=== PATIENT | female | born 1945 | race Caucasian/White ===

== ENCOUNTER 2023-02-09 09:24 | Observation (INO) | payer BC ==
[~2023-02-09] VITALS: Ht 162.6 cm; Wt 77.0 kg
[2023-02-09] MEDS: ASPIRIN 81MG ENTERIC TABLET PO SCH (09:00)
[2023-02-09] MEDS ORDERED: ISOVUE-370 76% 100ML VIAL As Ordered ONE (10:00)
[2023-02-09 10:01] LABS: BASO # 0.1 10^3/uL (0.0-0.2); BASO % 1.3 % (0.0-1.0); EOS # 0.2 10^3/uL (0.0-0.5); EOS % 2.7 % (0.0-3.0); HEMATOCRIT 38.6 % (36.0-47.0); HEMOGLOBIN 12.6 g/dl (12.0-15.5); LYMPH # 1.8 10^3/uL (1.5-5.0); LYMPH % 29.2 % (24.0-44.0); MEAN CORPUSCULAR HGB CONC 32.6 g/dl (32.0-36.5); MEAN CORPUSCULAR VOLUME 94.8 fl (80.0-96.0); MONO # 0.5 10^3/uL (0.0-0.8); MONO % 7.5 % (2.0-8.0); NEUTROPHILS # 3.7 10^3/uL (1.5-8.5); PLATELET COUNT, AUTOMATED 232 10^3/uL (150-450); RED BLOOD COUNT 4.07 10^6/uL (4.00-5.40); WHITE BLOOD COUNT 6.3 10^3/uL (4.0-10.0)
[2023-02-09 10:18] LABS: INR 0.93; PARTIAL THROMBOPLASTIN TIME 24.6 SECONDS (24.8-34.2); PROTHROMBIN TIME 12.2 SECONDS (12.5-14.5)
[2023-02-09 10:24] LABS: BLOOD UREA NITROGEN 20 MG/DL (9-23); CALCIUM LEVEL 8.7 MG/DL (8.3-10.6); CARBON DIOXIDE LEVEL 24 MMOL/L (20-31); CHLORIDE LEVEL 108 MMOL/L (98-107); CPK CREATINE PHOSPHOKINASE 352 U/L (34-145); CREATININE FOR GFR 0.77 MG/DL (0.55-1.30); GLOMERULAR FILTRATION RATE > 60.0 (>39); GLUCOSE, FASTING 96 MG/DL (74-106); POTASSIUM SERUM 4.2 MMOL/L (3.5-5.1); SODIUM LEVEL 140 MMOL/L (136-145)
[2023-02-09 10:25] LABS: CK-MB VALUE MASS 2.5 NG/ML (<3.6); MB/CK RELATIVE INDEX 0.71 (< OR =4)
[2023-02-09] MEDS ORDERED: NOXI1TAB PO (10:51)
[2023-02-09] MEDS ORDERED: LISI10TA22 PO (10:51)
[2023-02-09] MEDS ORDERED: CVSTAB PO (10:51)
[2023-02-09] MEDS ORDERED: SIMV20TA22 PO (10:51)
[2023-02-09] MEDS ORDERED: FIORECET (10:51)
[2023-02-09] MEDS ORDERED: FAMO20TA PO (10:51)
[2023-02-09] MEDS ORDERED: CITRTAB18 PO (10:51)
[2023-02-09] MEDS ORDERED: advil (10:54)
[2023-02-09] MEDS ORDERED: OMEP40CA4 PO (10:54)
[2023-02-09] MEDS ORDERED: FERR324T21 PO (10:54)
[2023-02-09] MEDS ORDERED: EXCED (10:54)
[2023-02-09 10:55] LABS: RSV AMPLIFICATION NEGATIVE (NEGATIVE)
[2023-02-09] MEDS ORDERED: MED REC IN PROGRESS XX SCH (11:40)
[2023-02-09] MEDS ORDERED: MED REC CURRENTLY UNOBTAINABLE XX SCH (11:50)
[2023-02-09] MEDS: CLOPIDOGREL 75 MG TAB PO SCH (15:01)
[2023-02-09 15:23] LABS: CHOLESTEROL LEVEL 145 MG/DL (<200); CHOLESTEROL RISK RATIO 2.45 (<5); HDL CHOLESTEROL 59.1 MG/DL (>40); LDL CHOLESTEROL 59.5 MG/DL (<100); NON-HDL-C 85.9 MG/DL; TRIGLYCERIDES LEVEL 132 MG/DL (<150)
[2023-02-09 15:26] LABS: THYROID STIMULATING HORMONE 0.774 uIU/ML (0.55-4.78); TOTAL 25(OH) VITAMIN D 55.4 NG/ML (20.0-100.0)
[2023-02-09] MEDS ORDERED: UBID200C PO (15:40)
[2023-02-09] MEDS ORDERED: BUTA1CAP PO (15:40)
[2023-02-09] MEDS ORDERED: OMEP-173 PO (15:40)
[2023-02-09] MEDS ORDERED: HOME MED LIST COMPLETE! XX SCH (15:45)
[2023-02-09 16:25] VITALS: BP 130/68; TEMP 97.3; O2SAT 98
[2023-02-09 19:41] VITALS: BP_SYST 113; BP_SYST 119; BP_SYST 121; BP_DIAS 61; BP_DIAS 64; BP_DIAS 67; TEMP 97.5; O2SAT 95
[2023-02-10 05:13] VITALS: BP 115/60; TEMP 97.5; O2SAT 93
[2023-02-10 06:09] LABS: BLOOD UREA NITROGEN 15 MG/DL (9-23); CALCIUM LEVEL 8.7 MG/DL (8.3-10.6); CARBON DIOXIDE LEVEL 25 MMOL/L (20-31); CHLORIDE LEVEL 108 MMOL/L (98-107); CREATININE FOR GFR 0.69 MG/DL (0.55-1.30); GLOMERULAR FILTRATION RATE > 60.0 (>39); GLUCOSE, FASTING 101 MG/DL (74-106); POTASSIUM SERUM 4.3 MMOL/L (3.5-5.1); SODIUM LEVEL 140 MMOL/L (136-145)
[2023-02-10 07:53] VITALS: BP 115/60
[2023-02-10] MEDS: ASPIRIN 81MG ENTERIC TABLET PO SCH (07:53)
[2023-02-10] MEDS: CLOPIDOGREL 75 MG TAB PO SCH (07:53)
[2023-02-10] MEDS ORDERED: ENOXAPARIN 40MG/0.4ML SYRINGE (J1650 PER 10MG) SC SCH (09:00)
[2023-02-10] MEDS ORDERED: PANTOPRAZOLE 40MG TAB (PROTONIX) PO SCH (09:00)
[2023-02-10] MEDS ORDERED: CLOP75TA2 PO ×2 (10:29→12:22)
[2023-02-10] MEDS ORDERED: ASPI81TAEC PO ×2 (10:29→12:22)
== END 2023-02-10 12:45 | disposition home or self-care (01) ==
LOC: M ED 10:40 → M ED INP 10:41 → ENRESERV 15:44 → M MSPAV 16:25
PROVIDERS: ADMIT Student in an Organized Health Care Education/Training Program; ATTEND Student in an Organized Health Care Education/Training Program
DX: G45.9 Transient cerebral ischemic attack, unspecified (principal); I10 Essential (primary) hypertension; E78.5 Hyperlipidemia, unspecified; K21.9 Gastro-esophageal reflux disease without esophagitis; Z79.899 Other long term (current) drug therapy
CPT/HCPCS: 36415; 70450; 70496; 70498; 70551; 71045; 80047; 80048; 80061; 82306; 82550; 82553; 83036; 83735; 84443; 84484; 85025; 85610; 85730; 87631; 93005; 93041; 94760; 96372; 97161; 99285; J1650; Q9967